=== PATIENT | male | born 1990 | race Caucasian/White ===

== ENCOUNTER 2018-06-27 14:12 | Emergency (ER) | payer OTHER ==
--- NOTE | 2018-06-27 14:20 | PDOC ---
Rapid Medical Evaluation Chief Complaint: Laceration Time Seen by Provider: 06/27/18 14:18 Medical Evaluation: 06/27/18 14:18 I did a brief in person evaluation on this patient. 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 Pt's tetanus is UTD PE: Skin: 2 cm lac to the distal aspect of 1st digit right hand. No bleeding, no signs of infection. Lungs: Clear Heart:RRR Abd: soft, non tender MS: Moves all extremities without difficulty Neuro: alert Psych: appropriate affect. Pt will proceed to [facility] for further evaluation. Discharge Disposition - Diagnosis Laceration - Referrals - Patient Instructions - Post Discharge Activity
[2018-06-27 14:21] VITALS: BP 124/78; PULSE 84; TEMP 97.8; BMI 32.3
[2018-06-27] MEDS ORDERED: KETOROLAC TROMETHAMINE 60 MG/2 ML VIAL IM ONE (15:07)
[2018-06-27] MEDS ORDERED: DIPHTH,PERTUSS(ACELL),TET 0.5 ML DISP.SYRIN IM ONE ×2 (15:07→15:09)
[2018-06-27] MEDS ORDERED: KETOROLAC TROMETHAMINE 60 MG/2 ML VIAL ONE (15:09)
--- NOTE | 2018-06-27 15:32 | PDOC ---
History of Present Illness - General Chief Complaint: Laceration Stated Complaint: RT HAND FINGER INJURY Time Seen by Provider: 06/27/18 14:18 History Source: Patient Exam Limitations: Clinical Condition - History of Present Illness Initial Comments: 06/27/18 15:35 Patient with no significant past medical history present with complaint of laceration to finger nail of right thumb with a paint trimmer pipe bowls and patient does not recall last tetanus vaccine. Denies numbness or tingling sensation to finger. Denies any other symptoms Timing/Duration: 1-3 hours Past History - Past Medical History Allergies/Adverse Reactions: Allergies Allergy/AdvReac Type Severity Reaction Status Date / Time No Known Allergies Allergy Verified 06/27/18 14:21 Home Medications: Ambulatory Orders Cephalexin Monohydrate [Keflex -] 500 mg PO BID 7 Days #14 capsule 06/27/18 Ibuprofen 800 mg PO Q8H PRN #20 tablet 06/27/18 - Suicide/Smoking/Psychosocial Hx Smoking History: Never smoked Have you smoked in the past 12 months: No Information on smoking cessation initiated: No Hx Alcohol Use: No Drug/Substance Use Hx: No Review of Systems - Review of Systems Able to Perform ROS?: Yes Is the patient limited [place] proficient: No Constitutional: No: Weakness HEENTM: No: Symptoms Reported Respiratory: No: Symptoms reported Cardiac (ROS): No: Symptoms Reported ABD/GI: No: Symptoms Reported Musculoskeletal: Yes: Symptoms Reported, See HPI, Muscle Pain (distal aspect of right index finger) Integumentary: Yes: Symptoms Reported, See HPI, Other (laceration through fingernail of right index finger) Neurological: Yes: Symptoms reported, See HPI. No: Numbness, Paresthesia, Tingling All Other Systems: Reviewed and Negative *Physical Exam - Vital Signs Last Vital Signs Temp Pulse Resp BP Pulse Ox 97.8 F 84 18 124/78 100 06/27/18 14:19 06/27/18 14:19 06/27/18 14:19 06/27/18 14:19 06/27/18 14:19 - Physical Exam Comments: 06/27/18 15:34 GENERAL: Well developed, well nourished. Awake and alert. No acute distress. CARDIOVASCULAR: Regular rate and rhythm. No murmurs, rubs, or gallops. PULMONARY: No evidence of respiratory distress. MUSCULOSKELETAL : moderate tenderness to nail bed of right index finger with 2cm horizontal laceration through fingernail of right thumb with no bleeding. normal sensory exam of finger. SKIN: Warm and dry. Normal capillary refill. NEUROLOGICAL: Alert, awake, appropriate. No motor deficits in the lower extremities. Gait is normal without ataxia. PSYCHIATRIC: Cooperative. Good eye contact. Appropriate mood and affect. 06/27/18 15:39 General Appearance: Yes: Nourished, Appropriately Dressed. No: Apparent Distress Procedures - Laceration/Wound Repair Right Posterior Distal Dorsal Finger 1st digit Wound Length: to 2.5 cm (2cm) Wound Explored: no foreign body present Wound's Depth, Shape: linear, nail-avulsed Irrigated w/ Saline: Yes Betadine Prep: Yes Amount of Anesthetic (ccs): 0 Wound Repaired With: Steri-strips, Dermabond Layer Closure: No Sterile Dressing Applied: Yes Splint Applied: Yes Sling Applied: No ED Treatment Course - RADIOLOGY Radiology Studies Ordered: Category Date Time Status FINGER(S) RIGHT [RAD] Stat Radiology 06/27/18 14:38 Taken - Medications Given in the ED: ED Medications Discontinued Medications Generic Name Dose Route Start Last Admin Trade Name Freq PRN Reason Stop Dose Admin Diphtheria/Tetanus/Acell Pertussis 0.5 ml 06/27/18 15:07 06/27/18 15:18 Boostrix - IM 06/27/18 15:08 0.5 ml .ONCE ONE Administration Ketorolac Tromethamine 60 mg 06/27/18 15:07 06/27/18 15:18 Toradol Injection - IM 06/27/18 15:08 60 mg ONCE ONE Administration Medical Decision Making - Medical Decision Making 06/27/18 15:36 Patient with no significant past medical history present with complaint of laceration to finger nail of right thumb with a paint trimmer pipe bowls and patient does not recall last tetanus vaccine. Denies numbness or tingling sensation to finger. Denies any other symptoms. Exam significant for 2 cm linear laceration through fingernail in a horizontal fashion to right thumb with no bleeding. x-ray of right thumb shows no acute fracture or pathology. Wound cleaned with Betadine and fingernail with approximated and closed with Dermabond. Steri-Strips applied to fingernail. Finger splint applied. Patient educated on home wound care. Patient stable for discharge on Keflex for infection prophylaxis and ibuprofen as needed for pain. Tetanus vaccine given Toradol 60 mg IM given for pain prior to discharge. *DC/Admit/Observation/Transfer Diagnosis at time of Disposition: Laceration Injury of thumb, right Qualifiers: Encounter type: initial encounter Qualified Code(s): S69.91XA - Unspecified injury of right wrist, hand and finger(s), initial encounter - Discharge Dispostion Disposition: HOME Condition at time of disposition: Stable Decision to Admit order: No - Prescriptions Prescriptions: Cephalexin Monohydrate [Keflex -] 500 mg PO BID 7 Days #14 capsule Ibuprofen 800 mg PO Q8H PRN #20 tablet PRN Reason: pain - Referrals - Patient Instructions Printed Discharge Instructions: DI for Laceration Repair Additional Instructions: Keep finger splint of for at least a week to help protect finger. Keep area clean and dry for the next 48hrs. Finger splint can come on and off after 2 days where your will be apply neosporin or bacitracin to wound and place splint back to protect finger. Take medications as prescribed. Follow-up with PCP as needed - Post Discharge Activity
== END 2018-06-27 15:44 | disposition home or self-care (01) ==
LOC: JERFT 14:12
PROC: 3E0234Z Introduction of Serum, Toxoid and Vaccine into Muscle, Percutaneous Approach (ICD-10-PCS; principal; 2018-06-27)
PROC: 3E0233Z Introduction of Anti-inflammatory into Muscle, Percutaneous Approach (ICD-10-PCS; 2018-06-27)
PROC: 0HQFXZZ Repair Right Hand Skin, External Approach (ICD-10-PCS; 2018-06-27)
DX: S61.111A Laceration without foreign body of right thumb with damage to nail, initial encounter (principal); W27.8XXA Contact with other nonpowered hand tool, initial encounter; Y93.89 Activity, other specified; Y92.69 Other specified industrial and construction area as the place of occurrence of the external cause; Y99.0 Civilian activity done for income or pay
CPT/HCPCS: 73140-TC-RT-FY; 90715; 99281-25